=== PATIENT | female | born 1940 | race Caucasian/White ===

== ENCOUNTER → 2020-07-14 | Day surgery (SDC) | payer MEDICARE ==
[2020-07-07 16:27] LABS: BASOPHILS % (AUTO) 0.5 % (0-1); EOSINOPHILS # (AUTO) 0.1 X10'3 (0-0.9); EOSINOPHILS % (AUTO) 2.3 % (0-6); LYMPHOCYTES % (AUTO) 31.6 % (21-51); MEAN CORPUSCULAR HEMOGLOBIN 29.3 PG (27.0-31.0); MEAN CORPUSCULAR HGB CONC 33.6 g/dL (33.0-36.5); MEAN CORPUSCULAR VOLUME 87.3 FL (78-98); MEAN PLATELET VOLUME 7.1 FL (7.4-10.4); MONOCYTES # (AUTO) 0.5 X10'3 (0-0.9); MONOCYTES % (AUTO) 8.3 % (2-12); NEUTROPHILS # (AUTO) 3.7 X10'3 (1.8-7.7); NEUTROPHILS % (AUTO) 57.3 % (42-75); PRE OP HEMATOCRIT 36.4 % (35.0-45.0); PRE OP HEMOGLOBIN 12.2 g/dL (12.0-16.0); PRE OP PLATELET COUNT 323 X10'3 (140-440); RED BLOOD COUNT 4.18 X10'6 (4.20-5.60); RED CELL DISTRIBUTION WIDTH 14.8 % (11.5-14.5)
[2020-07-07 16:31] LABS: ALBUMIN 3.8 G/DL (3.4-5.0); ALBUMIN/GLOBULIN RATIO 1.2 (1.1-1.5); ALKALINE PHOSPHATASE 73 IU/L (46-116); BLOOD UREA NITROGEN 17 MG/DL (7-18); BUN/CREATININE RATIO 22.1 (6.6-38.0); CHLORIDE 103 MMOL/L (99-107); CREATININE 0.77 MG/DL (0.40-0.90); PRE OP ALT 25 U/L (30-65); PRE OP ANION GAP 10 (8-16); PRE OP AST 23 U/L (10-37); PRE OP BILIRUB, TOTAL 0.2 MG/DL (0.0-1.0); PRE OP GLUCOSE 94 MG/DL (70-104); PRE OP SODIUM 143 MMOL/L (135-145); TOTAL CARBON DIOXIDE 30.1 MMOL/L (24-32); TOTAL PROTEIN 7.1 G/DL (6.4-8.2); eGFR 72 ML/MIN
[2020-07-14] VITALS (8 sets, daily range): BP systolic 110–136; BP diastolic 60–73
[~2020-07-14] VITALS: Ht 154.9 cm; Wt 63.4 kg
[~2020-07-14] MED LIST: ACEB200C17 PO; ACET-2971 PO; AMLO2.5T5 PO; ASPI81TA52 PO; BIOTIN; BUPIVAcaine/PF 2.5mg/ml (0.25%) 10ml vial ONE; CALCIUM; CELE-85 PO; COQ10; DOCUMENT DATE & TIME OF BETA-BLOCKER PO ONE; GABA300C PO; GARLIC; LIDOcaine 0.5% (5mg/ml) 50ml vial ONE; METH500T4 PO; MOVE FREE; MULTIVITAMIN; OIL OF OREGANO; PROBIOTIC; VITAMIN C; cefazolin/dext.iso 2gm/100ml IV ONE; famotidine 20mg tablet PO ONE; fentaNYL/PF 50MCG/1 ML 2ML syringe IV PRN; fentaNYL/PF 50MCG/1 ML 2ML syringe ONE; hydrALAZINE 20mg/ml inj. IV PRN; ketorolac trometh. 30mg/ml inj. ONE; labetalol 20mg/4ml (5mg/ml) syringe IV PRN; midazolam 1 mg/ML 2ml injection ONE; morphine 2 MG/ML inj. syringe IV PRN; morphine 4 MG/ML inj SYRINge IV PRN; ondansetron/PF 4mg/2ml inj IV PRN; ringers solution, lacted 1,000 ML IV SCH
--- NOTE | 2020-07-14 10:56 | NUR ---
Received from OR via , accompanied by Anesthesiologist DR GLODSTEIN and report given by Anesthesiolgist. PT PRESENTS WITH 20G LEFT C. PT WITH RCT.
== END | disposition home or self-care (01) ==
LOC: PAS 07:25
PROVIDERS: ATTEND Orthopaedic Surgery Hand Surgery
DX: G56.01 Carpal tunnel syndrome, right upper limb (principal); I10 Essential (primary) hypertension; K21.9 Gastro-esophageal reflux disease without esophagitis; M19.90 Unspecified osteoarthritis, unspecified site; I48.91 Unspecified atrial fibrillation; Z88.8 Allergy status to other drugs, medicaments and biological substances; Z79.82 Long term (current) use of aspirin; Z20.822 Contact with and (suspected) exposure to COVID-19; Z79.899 Other long term (current) drug therapy; Z96.651 Presence of right artificial knee joint; Z90.710 Acquired absence of both cervix and uterus; Z98.41 Cataract extraction status, right eye; Z98.42 Cataract extraction status, left eye; Z98.890 Other specified postprocedural states; Z87.891 Personal history of nicotine dependence
CPT/HCPCS: 36415; 64721; 80053; 82948; 85025; 93005; J1885; J2001; J2250; J3010; J3490; U0003; U0005; A4215; J7120

== ENCOUNTER 2021-08-08 12:28 | Outpatient (CLI) | payer MEDICARE ==
[~2021-08-08 12:28] MED LIST changes: -BUPIVAcaine/PF 2.5mg/ml (0.25%) 10ml vial ONE; -DOCUMENT DATE & TIME OF BETA-BLOCKER PO ONE; -LIDOcaine 0.5% (5mg/ml) 50ml vial ONE; -cefazolin/dext.iso 2gm/100ml IV ONE; -famotidine 20mg tablet PO ONE; -fentaNYL/PF 50MCG/1 ML 2ML syringe IV PRN; -fentaNYL/PF 50MCG/1 ML 2ML syringe ONE; -hydrALAZINE 20mg/ml inj. IV PRN; -ketorolac trometh. 30mg/ml inj. ONE; -labetalol 20mg/4ml (5mg/ml) syringe IV PRN; -midazolam 1 mg/ML 2ml injection ONE; -morphine 2 MG/ML inj. syringe IV PRN; -morphine 4 MG/ML inj SYRINge IV PRN; -ondansetron/PF 4mg/2ml inj IV PRN; -ringers solution, lacted 1,000 ML IV SCH
== END 2021-08-08 23:59 | disposition home or self-care (01) ==
LOC: CARD DIAG 12:28
PROVIDERS: ATTEND Internal Medicine Cardiovascular Disease
DX: I05.8 Other rheumatic mitral valve diseases (principal); I48.91 Unspecified atrial fibrillation
CPT/HCPCS: 93306

== ENCOUNTER 2024-08-19 09:38 | Day surgery (SDC) | payer MEDICARE, OTHER ==
[~2024-08-19] VITALS: Ht 156.2 cm; Wt 70.0 kg
[2024-08-19] VITALS (10 sets, daily range): BP systolic 110–172; BP diastolic 59–94; PULSE 58–80; RESP 12–17; O2SAT 98–100
[~2024-08-19 09:38] MED LIST changes: -ACEB200C17 PO; +ASPI-1264 PO; -ASPI81TA52 PO; +CELE-127 PO; -CELE-85 PO; -GABA300C PO; -OIL OF OREGANO; +PANT40TA54 PO; +[UNRECOGNIZED DRUG - CODE] PO
[2024-08-19] MEDS ORDERED: MIDAZolam 1 MG/ML 5ML VIAL ONE (11:56)
[2024-08-19] MEDS ORDERED: diphenhydrAMINE 50 mg/ml inj ONE (11:56)
[2024-08-19] MEDS ORDERED: fentaNYL/PF 50MCG/1 ML 2ML syringe ONE ×2 (11:56→12:13)
[2024-08-19] MEDS ORDERED: simethicone 40mg/0.6ml oral drops 30ml ONE (12:15)
== END 2024-08-19 13:10 | disposition home or self-care (01) ==
LOC: OR 09:38
PROVIDERS: ATTEND Internal Medicine Gastroenterology
DX: R19.4 Change in bowel habit (principal); K57.30 Diverticulosis of large intestine without perforation or abscess without bleeding; K64.8 Other hemorrhoids
CPT/HCPCS: 45378; 99153; A4620; G0500; J2250; J3010; J7030; Z7512; 99152; J1200